=== PATIENT | male | born 1985 | race Hispanic/Latino ===

== ENCOUNTER 2019-11-21 05:45 | Emergency (ER) | payer BC ==
[2019-11-21 06:09] LABS: BASOPHILS % (AUTO) 0.3 % (0.0-5.0); EOSINOPHILS % (AUTO) 2.5 % (0.0-8.0); HEMATOCRIT 40.7 % (42-54); LYMPHOCYTES % (AUTO) 32.3 % (21.0-51.0); MEAN CORPUSCULAR HEMOGLOBIN 28.5 pg (27.0-33.0); MEAN CORPUSCULAR HGB CONC 33.4 g/dL (32.0-36.0); MEAN CORPUSCULAR VOLUME 85.3 fL (79-99); MONOCYTES % (AUTO) 4.7 % (3.0-13.0); NEUTROPHILS % (AUTO) 59.8 % (40.0-77.0); PLATELET COUNT (AUTO) 312 K/uL (130-400); RED BLOOD CELL COUNT(AUTO) 4.77 MIL/uL (4.50-6.20); WHITE BLOOD COUNT (AUTO) 7.9 K/uL (4.8-10.8)
[2019-11-21 06:24] LABS: POTASSIUM 3.8 mmol/L (3.5-5.1)
[2019-11-21 06:26] LABS: INR 0.96 (0.85-1.15); PARTIAL THROMBOPLASTIN TIME 26.7 SEC (26.3-35.5); PROTHROMBIN TIME 10.1 SEC (9.6-11.6)
[2019-11-21 06:30] LABS: ALBUMIN 3.8 g/dL (3.5-5.0); BILIRUBIN,TOTAL 0.3 mg/dL (0.2-1.0); TOTAL PROTEIN, SERUM 7.6 g/dL (6.0-8.3)
[2019-11-21 06:56] LABS: AMPHET/METH SCREEN,URINE NEGATIVE (NEGATIVE); BARBITURATE SCREEN, URINE NEGATIVE (NEGATIVE); BENZODIAZEPINES SCREEN,URINE NEGATIVE (NEGATIVE); CANNABINOID SCREEN,URINE POSITIVE (NEGATIVE); COCAINE SCREEN,URINE POSITIVE (NEGATIVE); OPIATE SCREEN,URINE NEGATIVE (NEGATIVE); PHENCYCLIDINE SCREEN,URINE NEGATIVE (NEGATIVE)
[2019-11-21] MEDS ORDERED: MAG HYDROX/AL HYDROX/SIMETH ES 30 ML SUSP UDCUP ONE (07:05)
[2019-11-21] MEDS ORDERED: LIDOCAINE HCL 2% VISCOUS 15 ML UDCUP ONE (07:05)
== END 2019-11-21 07:15 | disposition home or self-care (01) ==
LOC: EDH 05:45
DX: R07.89 Other chest pain (principal)
CPT/HCPCS: 36415; 71045; 80053; 80305; 82550; 84484; 85025; 85610; 85730; 93005

== ENCOUNTER 2020-09-13 07:25 | Inpatient (IN) | payer BC, OTHER ==
[~2020-09-13] VITALS: Ht 182.9 cm; Wt 179.6 kg
[2020-09-13] MEDS ORDERED: ONDANSETRON HCL 4 MG/2 ML VIAL ONE (07:35)
[2020-09-13 07:54] LABS: BASOPHILS % (AUTO) 0.1 % (0.0-5.0); HEMATOCRIT 43.4 % (42-54); LYMPHOCYTES % (AUTO) 11.5 % (21.0-51.0); MEAN CORPUSCULAR HEMOGLOBIN 28.7 pg (27.0-33.0); MEAN CORPUSCULAR HGB CONC 33.4 g/dL (32.0-36.0); MEAN CORPUSCULAR VOLUME 85.8 fL (79-99); MONOCYTES % (AUTO) 1.9 % (3.0-13.0); NEUTROPHILS % (AUTO) 86.1 % (40.0-77.0); PLATELET COUNT (AUTO) 320 K/uL (130-400); RED BLOOD CELL COUNT(AUTO) 5.06 MIL/uL (4.50-6.20); RED CELL DISTRIBUTION WIDTH 12.7 % (11.0-15.5); WHITE BLOOD COUNT (AUTO) 13.4 K/uL (4.8-10.8)
[2020-09-13] MEDS ORDERED: MORPHINE SULFATE 4 MG/1ML SYG ONE ×2 (08:05→16:50)
[2020-09-13] MEDS ORDERED: MAG HYDROX/AL HYDROX/SIMETH ES 30 ML SUSP UDCUP ONE (08:05)
[2020-09-13] MEDS ORDERED: KETOROLAC TROMETHAMINE 30MG/ML ONE (08:05)
[2020-09-13] MEDS ORDERED: LIDOCAINE HCL 2% VISCOUS 15 ML UDCUP ONE (08:05)
[2020-09-13] MEDS ORDERED: SODIUM CHLORIDE 0.9% 1000ML 1,000 ML IV ONE (08:06)
[2020-09-13 08:12] LABS: ALBUMIN 4.2 g/dL (3.5-5.0); BILIRUBIN,TOTAL 0.3 mg/dL (0.2-1.0); POTASSIUM 3.9 mmol/L (3.5-5.1); TOTAL PROTEIN, SERUM 8.5 g/dL (6.0-8.3)
[2020-09-13] MEDS ORDERED: ZOSYN 3.375GM+NS 50ML 50 ML IV ONE (09:26)
[2020-09-13 09:42] LABS: APPEARANCE,URINE Clear (CLEAR); BILIRUBIN,URINE Negative (NEGATIVE); COLOR,URINE Yellow (YELLOW); GLUCOSE, URINE (UA) Negative (NEGATIVE); KETONES,URINE Trace mg/dL (NEGATIVE); LEUKOCYTE ESTERASE ,URINE Negative (NEGATIVE); NITRATE,URINE Negative (NEGATIVE); OCCULT BLOOD,URINE Negative (NEGATIVE); PROTEIN,URINE Trace mg/dL (NEGATIVE)
[2020-09-13 09:47] LABS: BACTERIA,URINE Rare /HPF (None Seen); RBC,URINE 0-1 /HPF (0-1); SQUAMOUS EPITHELIAL CELL,UR Rare /HPF (0-2); WBC,URINE 0-1 /HPF (0-1)
[2020-09-13] MEDS ORDERED: MORPHINE SULFATE 2 MG/ML 1ML SYG IV PRN (11:15)
[2020-09-13] MEDS ORDERED: LACTATED RINGERS 1000ML 1,000 ML IV ONE (12:10)
[2020-09-13] MEDS ORDERED: PANTOPRAZOLE 40 MG/VIAL ONE ×2 (12:11→21:15)
[2020-09-13] MEDS: LACTATED RINGERS 1000ML 1,000 ML IV SCH (21:15)
[2020-09-13] MEDS ORDERED: SODIUM CHLORIDE 0.9% 100 ML IV ONE (21:16)
[2020-09-13 22:40] VITALS: BP 123/73
--- NOTE | 2020-09-13 22:40 | NUR ---
ADMISSION NOTE ADMIT TO ROOM 330 VIA STRETCHER FROM ER , PATIENT AWAKE ALERT, OX3, NO SOB, NO C/O PAIN AT THIS TIME , RIGHT HAND 20 GAUGE CATHETER WITH IVF INFUSING WELL, NPO STATUS POST MIDNTE FOR HIDA SCAN IN THE AM , TEACH PATIENT PLAN OF CARE AND EXPECTED OUTCOME, PATIENT VERBALIZES UNDERSTANDING VIA TEACH BACK
[2020-09-14] VITALS (23 sets, daily range): BP systolic 119–155; BP diastolic 57–96
[2020-09-14] MEDS: LACTATED RINGERS 1000ML 1,000 ML IV SCH ×2 (00:16→17:54)
[2020-09-14 03:54] LABS: BASOPHILS % (AUTO) 0.2 % (0.0-5.0); EOSINOPHILS % (AUTO) 1.5 % (0.0-8.0); HEMATOCRIT 38.5 % (42-54); LYMPHOCYTES % (AUTO) 31.2 % (21.0-51.0); MEAN CORPUSCULAR HGB CONC 33.5 g/dL (32.0-36.0); MEAN CORPUSCULAR VOLUME 86.5 fL (79-99); MONOCYTES % (AUTO) 6.3 % (3.0-13.0); NEUTROPHILS % (AUTO) 60.5 % (40.0-77.0); PLATELET COUNT (AUTO) 281 K/uL (130-400); RED BLOOD CELL COUNT(AUTO) 4.45 MIL/uL (4.50-6.20); RED CELL DISTRIBUTION WIDTH 12.9 % (11.0-15.5); WHITE BLOOD COUNT (AUTO) 9.6 K/uL (4.8-10.8)
[2020-09-14 04:11] LABS: ALBUMIN 3.3 g/dL (3.5-5.0); BILIRUBIN,TOTAL 0.4 mg/dL (0.2-1.0); CREATININE 1.1 mg/dL (0.5-1.5); POTASSIUM 3.5 mmol/L (3.5-5.1); TOTAL PROTEIN, SERUM 7.1 g/dL (6.0-8.3)
[2020-09-14] MEDS ORDERED: PANTOPRAZOLE SODIUM 80 MG in SODIUM CHLORIDE 0.9% 100 ML IV SCH (09:00)
--- NOTE | 2020-09-14 12:14 | NUR ---
NATALIE GOYAL Spoke with spouse on the phone discussed dc plans. As per spouse, patient is independent prior to admission, lives at home with spouse. Denies any equipments/services. Feels safe to go back home, spouse able to assist with transportation and needs as necessary.DC plan to home. CM to continue to follow up. Addendum: 09/14/20 at 1216 by ULI LARRY Amended: Links added.
[2020-09-14] MEDS ORDERED: SUCCINYLCHOLINE 200MG/10ML SYR ONE ×2 (13:01→14:09)
[2020-09-14] MEDS ORDERED: MIDAZOLAM HCL 1 MG/ML 2ML VIAL ONE (13:01)
[2020-09-14] MEDS ORDERED: ONDANSETRON HCL 4 MG/2 ML VIAL ONE (13:01)
[2020-09-14] MEDS ORDERED: PROPOFOL 10 MG/ML 20ML VIAL IV ONE (13:01)
[2020-09-14] MEDS ORDERED: GLYCOPYRROLATE 1 MG/5 ML SYRINGE ONE ×2 (13:01→14:58)
[2020-09-14] MEDS ORDERED: LIDOCAINE PF 2% 5ML ABBOJECT ONE (13:01)
[2020-09-14] MEDS ORDERED: NEOSTIGMINE 5MG/5ML SYR IV ONE ×2 (13:01→14:59)
[2020-09-14] MEDS ORDERED: DEXAMETHASONE SOD PHOSPHATE 10MG/ML 1ML VIAL ONE (13:01)
[2020-09-14] MEDS ORDERED: ROCURONIUM 10MG/1ML SYR 10 MG/ML ML ONE (13:01)
[2020-09-14] MEDS ORDERED: FENTANYL CITRATE PF 50 MCG/1 ML 2ML VIAL ONE ×2 (13:02→14:37)
[2020-09-14] MEDS ORDERED: MEPERIDINE-PF 25 MG/ML SYG ONE ×2 (14:09→15:38)
[2020-09-14] MEDS ORDERED: BUPIVACAINE/PF 0.5% 30ML VIAL ONE (14:27)
[2020-09-14] MEDS ORDERED: MORPHINE SULFATE 4 MG/1ML SYG IV PRN (17:15)
[2020-09-14] MEDS ORDERED: ONDANSETRON HCL 4 MG/2 ML VIAL IVP PRN (17:15)
[2020-09-14] MEDS ORDERED: ACETAMINOPHEN-CODEINE 300/30MG TAB PO PRN ×2 (17:15)
[2020-09-14] MEDS: ZOSYN 3.375GM+NS 50ML 50 ML IV SCH (17:54)
--- NOTE | 2020-09-14 20:00 | NUR ---
ASSESSMENT NOTE PATIENT AWAKE, ALERT, OX3, NO SOB, NO C/O PAIN, ENCOURAGE DEEP BREATHING EXERCISES, TOLERATING CLEAR LIQUIDS WELL, IVF INFUSING WELL, ABDOMEN X 4 BANDAIDS D/I , BLE SCDS IN PLACE, TEACH PATIENT PLAN OF CARE AND EXPECTED OUTCOME, PATIENT VERBALIZES UNDERSTANDING VIA TEACH BACK
[2020-09-15] MEDS: ZOSYN 3.375GM+NS 50ML 50 ML IV SCH ×2 (00:28→08:06)
[2020-09-15] MEDS: LACTATED RINGERS 1000ML 1,000 ML IV SCH (03:23)
[2020-09-15 04:13] VITALS: BP 134/66
[2020-09-15 05:31] LABS: BASOPHILS % (AUTO) 0.1 % (0.0-5.0); LYMPHOCYTES % (AUTO) 13.2 % (21.0-51.0); MEAN CORPUSCULAR HEMOGLOBIN 28.9 pg (27.0-33.0); MEAN CORPUSCULAR HGB CONC 33.3 g/dL (32.0-36.0); MEAN CORPUSCULAR VOLUME 86.7 fL (79-99); NEUTROPHILS % (AUTO) 83.3 % (40.0-77.0); PLATELET COUNT (AUTO) 304 K/uL (130-400); RED CELL DISTRIBUTION WIDTH 12.4 % (11.0-15.5); WHITE BLOOD COUNT (AUTO) 14.1 K/uL (4.8-10.8)
[2020-09-15 05:55] LABS: ALBUMIN 3.2 g/dL (3.5-5.0); BILIRUBIN,TOTAL 0.4 mg/dL (0.2-1.0); POTASSIUM 4.1 mmol/L (3.5-5.1); TOTAL PROTEIN, SERUM 7.4 g/dL (6.0-8.3)
[2020-09-15] MEDS ORDERED: PANTOPRAZOLE SODIUM 40 MG TABLET.DR PO SCH (09:00)
[2020-09-15 09:08] VITALS: BP 137/86
[2020-09-15 11:48] VITALS: BP 119/76
[2020-09-15 16:13] VITALS: BP 134/61
[2020-09-15 19:39] VITALS: BP 127/74
--- NOTE | 2020-09-15 22:30 | NUR ---
PT DISCHARGED PT GIVEN DISCHARGE INSTRUCTIONS. PT VERBALIZED DISCHARGE INSTRUCTIONS. IV REMOVED WITH CATH INTACT. PT TAKEN TO LOBBY VIA WHEELCHAIR FOR DISCHARGE. NO IDSTRESS NOTED.
== END 2020-09-15 22:51 | disposition home or self-care (01) | DRG 418 ==
LOC: EDH 07:25 → OBSVTOIN 07:26 → EDHIP 07:26 → 3AH 22:00
PROVIDERS: ADMIT Surgery; ATTEND Surgery
PROC: 0FT44ZZ Resection of Gallbladder, Percutaneous Endoscopic Approach (ICD-10-PCS; principal; 2020-09-14 14:11)
DX: K80.00 Calculus of gallbladder with acute cholecystitis without obstruction (principal); Z68.43 Body mass index [BMI] 50.0-59.9, adult; E66.01 Morbid (severe) obesity due to excess calories; K82.8 Other specified diseases of gallbladder; K76.0 Fatty (change of) liver, not elsewhere classified
CPT/HCPCS: 36415; 76705; 78226; 80053; 81001; 83690; 84484; 85025; 86850; 86900; 86901; 93005; 99291; A9537; C9113; G0378; J0330; J1100; J1885; J2001; J2175; J2250; J2270; J2405; J2543; J2704; J2710; J3010; J3490; J7030; J7120

== ENCOUNTER 2025-04-12 17:18 | Emergency (ER) | payer OTHER ==
[~2025-04-12] VITALS: Ht 182.9 cm; Wt 170.1 kg
[2025-04-12 17:20] VITALS: TEMP 97.9
--- NOTE | 2025-04-12 17:38 | ERN ---
ED Note History of Present Illness Stated Complaint: DIZZY, NAUSEA, RT ARM NUMBNESS X 3 DAYS Chief Complaint: Dizzy/Light Headed Time Seen by MD: 17:23 Time Seen by Midlevel: 17:23 Dictation: The patient is a 39-year-old male with a history of cholecystectomy who presents to the emergency department with complaints of dizziness associated with nausea and right arm numbness onset Thursday. Patient also reports having a lot of weakness and feeling very anxious. Patient denies any chest pain or shortness o f breath, denies fevers or cough. Patient denies any falls or any syncope episodes. Allergies: Coded Allergies: No Allergy Information Available (Verified Allergy, Unknown, 09/13/20) Home Meds No Active Prescriptions or Reported Meds Past Medical History Past Medical History: No Pertinent History Surgical History: Cholecystectomy RN Note Reviewed/Agreed w/PFSH: Yes Review of System Dictation Constitutional: Negative for fever,chills, and weight loss Eyes: Negative for injury, pain,redness, and discharge ENT: Negative for injury,pain or swelling Cardiovascular: Negative for chest pain, palpitations, and edema Respiratory: Negative for shortness of breath, cough, and wheezing, Abdomen/GI: Negative for abdominal pain, vomiting, diarrhea, and constipation positive for nausea Back: Negative for injury and pain : Negative for injury, bleeding and discharge MS/Extremity: Negative for injury and deformity Skin: Negative for rash, and discoloration Neuro: Negative for headache, weakness, tingling, and seizure positive for numbness, dizziness Psych: Negative for suicide ideation, homicidal ideation, and hallucinations Initial Vital Sign VS Vital Signs Date Time Temp Pulse Resp B/P (MAP) Pulse Ox O2 Delivery O2 Flow Rate FiO2 04/12/25 17:20 97.9 79 16 167/100 96 Room Air 0 04/12/25 18:13 21 Physical Exam Dictation Vital Signs reviewed General Appearance: Alert, oriented x 3, no acute distress, well developed, nourished. Head and Face: non-traumatic. Eyes: PERRL, pink conjunctivas, eyelid no trauma, anterior chamber with arcus senilis. Ears: Pinnas intact and no signs of trauma or erythema ear canals clear and no discharge TM no erythema Nose: No discharge, no bleeding. Oropharynx: Mouth normal, tongue pink. pharynx clear,no erythema, tonsils no exudates, no abscesses noted, mucous membrane moist Neck: Supple, non-tender, no thyromegaly, no masses, no JVD, no bruits Breast:Deferred Chest:No tenderness, no crepitus, no paradoxical movement, no retractions Lungs:Clear, well-ventilated, symmetric, no rales, no wheezing, no rhonchi, no stridor, good breath sounds bilaterally Heart: Regular rate, regular rhythm, no murmur, no gallops Vascular: no peripheral edema, Abdomen: Soft, positive bowel sounds, nondistended, no guarding, nontender, no rebound, no masses no hepatomegaly, no splenomegaly, no James's sign, no hernias. Rectal: Deferred Genital: Deferred Neurological: Normal speech, motor function intact, sensory function intact , upper extremities equal in strength, lower extremities equal in strength, no facial droop Musculoskeletal: Neck nontender, full range of motion, back nontender, full range of motion, Extremities: nontender, full range of motion Skin: Color pink, dry, no turgor, no rash, no lacerations, no abrasions, no contusions. Lymphatic: Deferred Results (Laboratory/Radiology) Laboratory/Radiology Laboratory Tests Test 04/12/25 17:40 White Blood Count 8.8 K/uL (4.8-10.8) Red Blood Count 4.95 MIL/uL (4.50-6.20) Hemoglobin 15.0 g/dL (14.0-18.0) Hematocrit 42.5 % (42-54) Mean Corpuscular Volume 85.9 fL (79-99) Mean Corpuscular Hemoglobin 30.3 pg (27.0-33.0) Mean Corpuscular Hemoglobin Concent 35.3 g/dL (32.0-36.0) Red Cell Distribution Width 12.8 % (11.0-15.5) Platelet Count 336 K/uL (130-400) Mean Platelet Volume 8.6 fL (7.5-10.5) Immature Granulocyte % (Auto) 0.5 % (0-1) Neutrophils (%) (Auto) 63.0 % (40.0-77.0) Lymphocytes (%) (Auto) 29.4 % (21.0-51.0) Monocytes (%) (Auto) 4.8 % (3.0-13.0) Eosinophils (%) (Auto) 2.0 % (0.0-8.0) Basophils (%) (Auto) 0.3 % (0.0-5.0) Neutrophils # (Auto) 5.6 K/uL (1.8-7.7) Lymphocytes # (Auto) 2.6 K/uL (1.0-4.8) Monocytes # (Auto) 0.4 K/uL (0.1-1.0) Eosinophils # (Auto) 0.18 K/uL (0.00-0.70) Basophils # (Auto) 0.03 K/uL (0.00-0.20) Absolute Immature Granulocyte (auto 0.04 K/uL (0-1) Nucleated Red Blood Cells 0.0 % (0.0-0.19) Sodium Level 139 mmol/L (136-145) Potassium Level 4.1 mmol/L (3.5-5.1) Chloride Level 103 mmol/L (101-111) Carbon Dioxide Level 26 mmol/L (21-32) Blood Urea Nitrogen 11 mg/dL (7-18) Creatinine 0.9 mg/dL (0.5-1.3) Glomerular Filtration Rate Calc 111 mL/min (>90) Random Glucose 116 mg/dL (70-105) H Total Calcium 8.4 mg/dL (8.5-10.1) L Total Creatine Kinase 130 U/L (21-232) Troponin I High Sensitivity 6.4 ng/L (4-75) REASON: dizzy ORDERING PHYSICIAN: TONY GILL PROCEDURE: HEAD WO - CT HEAD/BRAIN W/O CONTRAST CT HEAD WITHOUT CONTRAST INDICATION: Dizziness TECHNIQUE: Noncontrast axial helical CT images from the vertex through the skull base using 5 mm slice thickness without contrast material. CT was performed with one or more of the following dose reduction techniques: Automated exposure control, adjustment of the mA and/or kV according to patient size, or use of iterative reconstruction technique. COMPARISON: None FINDINGS: The cerebral and cerebellar hemispheres are age-appropriate in appearance. No evidence for abnormal extra-axial fluid collections or masses. The ventricles and sulci are normal in size and configuration. No evidence for intracranial parenchymal, epidural, or subdural hemorrhage, mass effect or midline shift. The katz-white matter differentiation is well preserved. No secondary evidence to suggest acute ischemia. The brainstem and cerebellum appear normal. The visualized orbits appear unremarkable. 1.1 cm left maxillary sinus mucus retention cyst. Remainder of the visible paranasal sinuses and mastoid air cells are clear. The calvarium appears normal. IMPRESSION: No acute intracranial process identified. REASON: dizzy ORDERING PHYSICIAN: TONY GILL DIRECTOR OF OUTPATIENT SERVICES PROCEDURE: CXR1VW - CHEST 1VW PORTABLE CHEST RADIOGRAPH INDICATION: dizzy COMPARISON: 11/21/2019 FINDINGS: Heart size is normal. The pulmonary vascularity and kelly appear normal. Linear opacities near the right lung base without consolidation. No significant pleural effusion noted. No pneumothorax detected. IMPRESSION: Minimal right lung base scarring and/or atelectasis. Labs Reviewed?: Yes EKG: (+) rhythm (Sinus rhythm) EKG Comment: Date:04/12/2025 Time:1749 Ventricular rate:74 [place] interval:164 QRS duration:107 QT/QTc:399 EKG interpretation: Sinus rhythm, borderline T-wave abnormalities Reviewed by ED Attending no STEMI ED Course ED Course Orders Procedure Category Date Status Time Cbc With Differential LAB 04/12/25 Complete 17:32 Chest 1vw RAD 04/12/25 Resulted 17:32 12 Lead Ekg Tracing- EKG 04/12/25 Logged Technical 17:32 0.9%Nacl 1000ml (Ns PHA 04/12/25 Complete 1000ml) 18:00 Urinalysis Profile LAB 04/12/25 Logged 17:32 Basic Metabolic Panel LAB 04/12/25 Complete 17:32 Drug Screen Urine LAB 04/12/25 Logged 17:32 Orthostatic Vital CPOE 04/12/25 Transmitted Signs 17:32 Ct Head/Brain W/O CT 04/12/25 Resulted Contrast 17:32 Meclizine Hcl 25 Mg PHA 04/12/25 Complete (Antivert 25 Mg) 18:00 Cardiac Panel LAB 04/12/25 Complete 17:32 Current Medications Medications (Trade) Dose Ordered Sig/Tomás Route PRN Reason Start Time Stop Time Status Last Admin Dose Admin Meclizine HCl (ANTIvert 25 mg) 25 mg ONCE ONCE PO 04/12/25 18:00 04/12/25 18:01 DC 04/12/25 18:02 Sodium Chloride 1,000 ml @ 0 mls/hr ONCE ONCE IV 04/12/25 18:00 04/12/25 18:01 DC 04/12/25 18:02 Vital Signs Date Time Temp Pulse Resp B/P (MAP) Pulse Ox O2 Delivery O2 Flow Rate FiO2 04/12/25 18:49 74 16 155/75 96 Room Air* 0 21 04/12/25 18:13 68 14 133/67 98 Room Air* 0 21 04/12/25 17:20 97.9 79 16 167/100 96 Room Air 0 Medical Decision Making [facility] The patient is a 39-year-old male with a history of cholecystectomy who presents to the emergency department with complaints of dizziness associated with nausea and right arm numbness onset Thursday. Patient also reports having a lot of weakness and feeling very anxious. Patient denies any chest pain or shortness of breath, denies fevers or cough. Patient denies any falls or any syncope episodes. CBC showed no leukocytosis, no anemia, chemistry showed no electrolyte imbalance, negative troponin, negative CK level. orthostatics vital signs unremarkable. On physical exam patient is neurologically intact. Patient initially complained of right arm numbness and then reported he also had left leg numbness. NIH of 0. Patient in no acute distress, stable vital signs. Nontoxic appearance. Reports a having a lot anxiety in the past week. Reports not currently dizzy. Patient we will be discharged to follow up with PCP and treated for sinusitis. Differential diagnosis: Dehydration, tachyarrhythmia, CVA, electrolyte imbalance Need for hospitalization: Patient does not meet criteria for hospitalization. There are no social concerns with this patient. DX & DISP Disposition: Discharge Departure Impression: Primary Impression: Dizziness Additional Impressions: Anxiety, Sinusitis Condition: Stable Scripts Amoxicillin/Potassium Clav (Amox Tr-K Clv 875-125 mg Tab) 875 Mg-125 Mg Tablet 1 EACH PO BID for 5 Days, #10 TAB 0 Refills Prov: TONY GILL DIRECTOR OF OUTPATIENT SERVICES 04/12/25 Additional Instructions: Please follow up with the your primary doctor in 1-2 days. Take your medications as prescribed. If symptoms worsen or anything changes please return to ER. FOLLOW-UP WITH PRIMARY CARE PROVIDER IN 1 TO 2 DAYS. TAKE MEDICATIONS DIRECTED HERE IN THE EMERGENCY ROOM. OKAY TO CONTINUE HOME MEDICATIONS UNLESS OTHERWISE DISCUSSED DURING YOUR VISIT IN THE EMERGENCY ROOM TODAY. RETURN TO YOUR NEAREST EMERGENCY ROOM IF SYMPTOMS WORSEN OR IF THERE IS NO IMPROVEMENT. CALL 911 IF YOU NEED IMMEDIATE ASSISTANCE. TAKE TYLENOL OR MOTRIN BOUT-[id number] NEEDED AND IF NO CONTRAINDICATIONS ARE PRESENT. INCREASE ORAL HYDRATION. A WOUND CULTURE OR URINE CULTURE WAS ORDERED HERE IN THE EMERGENCY ROOM DEPARTMENT PLEASE FOLLOW-UP WITH PRIMARY CARE PROVIDER AND ADVISE THEM TO GET REPEAT PORTS FROM OUR FACILITY. IF YOU HAD ANY AVERY WRAP/SPLINTS THAT WERE APPLIED HERE, PLEASE DO NOT REMOVE THEM UNTIL YOU SEE YOUR PRIMARY CARE OR SPECIALTY. Referrals: SELF,REFERRAL (PCP) Time of Disposition: 18:52 I have reviewed the case, and I agree with, Diagnosis and Plan TONY GILL DIRECTOR OF OUTPATIENT SERVICES April 12, 2025 17:38
[2025-04-12 17:49] LABS: BASOPHILS # (AUTO) 0.03 K/uL (0.00-0.20); BASOPHILS % (AUTO) 0.3 % (0.0-5.0); EOSINOPHILS # (AUTO) 0.18 K/uL (0.00-0.70); HEMATOCRIT 42.5 % (42-54); IMMATURE GRANULOCYTE ABSOLUTE 0.04 K/uL (0-1); LYMPHOCYTES # (AUTO) 2.6 K/uL (1.0-4.8); LYMPHOCYTES % (AUTO) 29.4 % (21.0-51.0); MEAN CORPUSCULAR HEMOGLOBIN 30.3 pg (27.0-33.0); MEAN CORPUSCULAR HGB CONC 35.3 g/dL (32.0-36.0); MEAN CORPUSCULAR VOLUME 85.9 fL (79-99); MONOCYTES # (AUTO) 0.4 K/uL (0.1-1.0); MONOCYTES % (AUTO) 4.8 % (3.0-13.0); NEUTROPHILS # (AUTO) 5.6 K/uL (1.8-7.7); PLATELET COUNT (AUTO) 336 K/uL (130-400); RED BLOOD CELL COUNT(AUTO) 4.95 MIL/uL (4.50-6.20); RED CELL DISTRIBUTION WIDTH 12.8 % (11.0-15.5); WHITE BLOOD COUNT (AUTO) 8.8 K/uL (4.8-10.8)
--- NOTE | 2025-04-12 17:55 | HMCIMG ---
PORTABLE CHEST RADIOGRAPH INDICATION: dizzy COMPARISON: 11/21/2019 FINDINGS: Heart size is normal. The pulmonary vascularity and kelly appear normal. Linear opacities near the right lung base without consolidation. No significant pleural effusion noted. No pneumothorax detected. IMPRESSION: Minimal right lung base scarring and/or atelectasis.
[2025-04-12 17:58] LABS: CREATININE 0.9 mg/dL (0.5-1.3); POTASSIUM 4.1 mmol/L (3.5-5.1)
--- NOTE | 2025-04-12 18:01 | HMCIMG ---
CT HEAD WITHOUT CONTRAST INDICATION: Dizziness TECHNIQUE: Noncontrast axial helical CT images from the vertex through the skull base using 5 mm slice thickness without contrast material. CT was performed with one or more of the following dose reduction techniques: Automated exposure control, adjustment of the mA and/or kV according to patient size, or use of iterative reconstruction technique. COMPARISON: None FINDINGS: The cerebral and cerebellar hemispheres are age-appropriate in appearance. No evidence for abnormal extra-axial fluid collections or masses. The ventricles and sulci are normal in size and configuration. No evidence for intracranial parenchymal, epidural, or subdural hemorrhage, mass effect or midline shift. The katz-white matter differentiation is well preserved. No secondary evidence to suggest acute ischemia. The brainstem and cerebellum appear normal. The visualized orbits appear unremarkable. 1.1 cm left maxillary sinus mucus retention cyst. Remainder of the visible paranasal sinuses and mastoid air cells are clear. The calvarium appears normal. IMPRESSION: No acute intracranial process identified.
[2025-04-12] MEDS: mecliZINE HCL 25 MG TABLET PO ONE (18:02)
[2025-04-12] MEDS: 0.9%NACL 1000ML 1,000 ML IV ONE (18:02)
--- NOTE | 2025-04-12 18:48 | NUR ---
ORTHSTATIC VITAL SIGNS SUPINE 149/79-102 SITTIN/67-108 STANDIN/100-109
[2025-04-12 18:49] VITALS: BP 155/75; PULSE 74; RESP 16; O2SAT 96
[2025-04-12] MEDS ORDERED: AMOX1TAB16 PO (18:53)
--- NOTE | 2025-04-13 08:35 | EKG ---
[facility] Test Date: 2025-04-12 Test Time: 17:59:02 Pat Name: SHAI ACOSTA Department: ED Room: Gender: Molding Supervisor: [facility] : 1985 Requested By: TONY GILL Order Number: [id number] Reading MD: Radha Anderson Measurements Intervals [place] Rate: 74 P: 18 MS: 164 QRS: -10 QRSD: 107 T: 13 QT: 399 QTc: 442 Interpretive Statements Sinus rhythm Low voltage, precordial leads Borderline T abnormalities, diffuse leads Compared to ECG 09/13/2020 07:55:41 Low QRS voltage now present T-wave abnormality still present Electronically Signed On 04-14-2025 18:38:55 CDT by Radha Anderson Please click the below link to view image of tracing.
== END 2025-04-12 19:05 | disposition home or self-care (01) ==
LOC: EDH 17:18
DX: R42 Dizziness and giddiness (principal); F41.9 Anxiety disorder, unspecified; J32.9 Chronic sinusitis, unspecified; Z90.49 Acquired absence of other specified parts of digestive tract
CPT/HCPCS: 99285; 96360; 70450; 71045; 82550; 84484; 80048; 85025; 36415; 93005; J7030